=== PATIENT | female | born 1985 | race African-American/Black ===

== ENCOUNTER 2017-12-31 10:23 | Emergency (ER) | payer OTHER ==
[~2017-12-31] VITALS: Ht 165.1 cm; Wt 54.9 kg
[2017-12-31] MEDS ORDERED: POLYTRIM EYE DR10 ML RIGHT EYE (11:48)
[2017-12-31 12:00] VITALS: BP 146/88
== END 2017-12-31 12:01 | disposition home or self-care (01) ==
LOC: EME 10:23
DX: H10.9 Unspecified conjunctivitis (principal)
CPT/HCPCS: 99281; 99284